=== PATIENT | female | born 1965 | race Hispanic/Latino ===

== ENCOUNTER 2018-02-03 10:52 | Emergency (ER) | payer BC, OTHER ==
[2018-02-03 11:24] VITALS: O2SAT 99
[2018-02-03] MEDS ORDERED: TDAP Vaccine 0.5 mL Syr IM ONE (11:25)
--- NOTE | 2018-02-03 11:43 | ED PDOC ---
Arrival/HPI - General Chief Complaint: Burn Time Seen by Provider: 02/03/18 11:20 Historian: Patient - History of Present Illness Narrative History of Present Illness (Text): 02/03/18 11:26 A 52 year old female with no significant past medical history presents to the emergency department status post burn from yesterday afternoon. 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 Patient notes the grease did not hit her eyes, she immediately washed her area with cold water and applied burn cream to areas affected with little relief. Patient reports her tetanus shot is not up to date. Patient denies any fever, chills, chest pain, shortness of breath, nausea, vomiting, diarrhea, urinary symptoms, back pain, neck pain, headache, dizziness, or any other complaints. Time/Duration: 24 hours (yesterday) Symptom Onset: Sudden Activities at Onset: Light Context: Work (Hospital Kitchen ) Past Medical History - Provider Review Nursing Documentation Reviewed: Yes - Reproductive Menopause: Yes - Cardiac Hx Cardiac Disorders: Yes Hx Hypertension: Yes - Pulmonary Hx Respiratory Disorders: No - Neurological Hx Neurological Disorder: No - HEENT Hx HEENT Disorder: No - Renal Hx Renal Disorder: No - Endocrine/Metabolic Hx Endocrine Disorders: Yes Other/Comment: THYROID DISEASE - Hematological/Oncological Hx Blood Disorders: No - Integumentary Hx Dermatological Disorder: No - Musculoskeletal/Rheumatological Hx Musculoskeletal Disorders: No - Gastrointestinal Hx Gastrointestinal Disorders: No - Genitourinary/Gynecological Hx Genitourinary Disorders: No - Psychiatric Hx Psychophysiologic Disorder: No Hx Substance Use: No - Surgical History Hx Section: Yes Family/Social History - Physician Review Nursing Documentation Reviewed: Yes Family/Social History: Unknown Family HX Smoking Status: Light Smoker < 10 Cigarettes Daily Hx Alcohol Use: Yes Frequency of alcohol use: Socially Hx Substance Use: No Allergies/Home Meds Allergies/Adverse Reactions: Allergies No Known Allergies Allergy (Verified 02/03/18 11:19) Home Medications: Home Meds Medication Instructions Recorded Confirmed Unobtainable 02/03/18 02/03/18 Review of Systems - Physician Review All systems were reviewed & negative as marked: Yes - Review of Systems Constitutional: Normal. absent: Fevers, Night Sweats Eyes: Normal ENT: Normal Respiratory: absent: SOB Cardiovascular: absent: Chest Pain Gastrointestinal: absent: Diarrhea, Nausea, Vomiting Genitourinary Female: absent: Urine Output Changes Musculoskeletal: absent: Back Pain, Neck Pain Skin: Other (burn on the bridge of her nose and around her lips ). absent: Normal, Rash, Pruritis, Skin Lesions, Laceration, Abscess, Ulcer, Cellulitis Neurological: absent: Headache, Dizziness Physical Exam Vital Signs Reviewed: Yes Vital Signs Temp Pulse Resp BP Pulse Ox 02/03/18 11:26 98.2 F 62 18 134/67 99 02/03/18 11:19 98.1 F 58 L 16 134/91 H 99 Temperature: Afebrile Blood Pressure: Hypertensive Pulse: Bradycardic Respiratory Rate: Normal Appearance: Positive for: Well-Appearing, Non-Toxic, Comfortable Pain Distress: None Mental Status: Positive for: Alert and Oriented X 3 - Systems Exam Head: Present: Atraumatic, Normocephalic Pupils: Present: PERRL Extroacular Muscles: Present: EOMI Conjunctiva: Present: Normal Mouth: Present: Moist Mucous Membranes Neck: Present: Normal Range of Motion Respiratory/Chest: Present: Clear to Auscultation, Good Air Exchange. No: Respiratory Distress, Accessory Muscle Use Cardiovascular: Present: Regular Rate and Rhythm, Normal S1, S2. No: Murmurs Abdomen: No: Tenderness, Distention, Peritoneal Signs Back: Present: Normal Inspection Upper Extremity: Present: Normal Inspection. No: Cyanosis, Edema Lower Extremity: Present: Normal Inspection. No: Edema Neurological: Present: GCS=15, CN II-XII Intact, Speech Normal Skin: Present: Warm, Dry, Normal Color, Other (superficial second degree burn on the bridge of her nose (1/2 cm diameter), burn and fluid filled blisters on on area above lip and two areas below lip-1/2 cm diameter (all drained by me)). No: Rashes, Diaphoretic, Erythematous, Induration, Hot, Cold, Pale, Laceration , Abscess, Abrasion Psychiatric: Present: Alert, Oriented x 3, Normal Insight, Normal Concentration Medical Decision Making ED Course and Treatment: 02/03/18 11:35 Impression: A 52 year old female with no significant past medical history presents to the emergency department status post burn. Plan: -- Reassess and disposition Prior Visits: Notes and results from previous visits were reviewed. Progress Notes: - Medication Orders Current Medication Orders: Discontinued Medications Tetanus/Reduced Diphtheria/Acell Pertussis (Boostrix Vaccine Inj) 0.5 ml IM .ONCE ONE Stop: 02/03/18 11:26 Last Admin: 02/03/18 11:35 Dose: 0.5 ml Immunization Registry Document 02/03/18 11:35 HI (Rec: 02/03/18 11:35 HI [id number]) Immunization Registry Consent Date 07/16/17 - Scribe Statement The provider has reviewed the documentation as recorded by the Vinceibkiana Garrett All medical record entries made by the Scribe were at my direction and personally dictated by me. I have reviewed the chart and agree that the record accurately reflects my personal performance of the history, physical exam, medical decision making, and the department course for this patient. I have also personally directed, reviewed, and agree with the discharge instructions and disposition. Disposition/Present on Arrival - Present on Arrival Any Indicators Present on Arrival: No History of DVT/PE: No History of Uncontrolled Diabetes: No Urinary Catheter: No History of Decub. Ulcer: No History Surgical Site Infection Following: None - Disposition Have Diagnosis and Disposition been Completed?: Yes Diagnosis: Second degree burn Disposition: HOME/ ROUTINE Disposition Time: 11:15 Condition: GOOD Discharge Instructions (ExitCare): Skin Low (DC) Additional Instructions: LORI LOPEZ, thank you for letting us take care of you today. Your provider was Marcos Lynn DO and you were treated for BURN. The emergency medical care you received today was directed at your acute symptoms. If you were prescribed any medication, please fill it and take as directed. It may take several days for your symptoms to resolve. Return to the Emergency Department if your symptoms worsen, do not improve, or if you have any other problems. Please contact your doctor or call one of the physicians/clinics you have been referred to that are listed on the Patient Visit Information form that is included in your discharge packet. Bring any paperwork you were given at discharge with you along with any medications you are taking to your follow up visit. Our treatment cannot replace ongoing medical care by a primary care provider outside of the emergency department. Thank you for allowing the Critical access hospital team to be part of your care today. Keep area clean and dry until healed. Use bacitracin twice a day until healed. Referrals: [facility] Alvin Abdullahi, [Family Provider] - Follow up with primary Forms: [employer] (French)
[2018-02-03 13:06] VITALS: BP 134/67; PULSE 62; RESP 18; TEMP 98.2
== END 2018-02-03 11:26 | disposition home or self-care (01) ==
LOC: ED 10:52
DX: T20.24XA Burn of second degree of nose (septum), initial encounter (principal); T20.22XA Burn of second degree of lip(s), initial encounter; X10.2XXA Contact with fats and cooking oils, initial encounter; Y92.238 Other place in hospital as the place of occurrence of the external cause; Y99.0 Civilian activity done for income or pay; Z23 Encounter for immunization

== ENCOUNTER 2018-04-04 11:03 | Emergency (ER) | payer BC, OTHER ==
[2018-04-04 11:06] VITALS: BMI 29.5
[2018-04-04 11:11] VITALS: TEMP 97.6
--- NOTE | 2018-04-04 11:41 | ED PDOC ---
Arrival/HPI - General Historian: Patient - History of Present Illness Narrative History of Present Illness (Text): 04/04/18 11:33 Patient is a 52 year old with a past medical history of hypertension, thyroid disease and anxiety presenting to the emergency room with a complaint of right sided facial/hand tingling for 24 hours. Yesterday while at work, the patient began to have a "funny sensation" on the right side of her face and right hand with a feeling of heaviness as well. Patient had Boothe's palsy approximately 20 years ago and states the sensation is similar. She has not been taking her anxiety and thyroid medications for the past couple of weeks because she ran out of her medication and when she re-filled it, they gave her a different medication. She reports increased stress at work, working long hours, increased fatigue and difficulty with her boss. Denies fevers, chills, nausea, vomiting, diarrhea, constipation, chest pain, shortness of breath, abdominal pain, vision changes, headaches, slurred speech or facial droop. Time/Duration: 24 hours Symptom Onset: Sudden Symptom Course: Improving Quality: Other (tingling) <Travon Garay - Last Filed: 04/04/18 13:10> <Leonardo Pop - Last Filed: 04/04/18 16:26> - General Chief Complaint: Weakness/Neurological Deficit Time Seen by Provider: 04/04/18 11:15 Past Medical History - Provider Review Nursing Documentation Reviewed: Yes - Infectious Disease Hx of Infectious Diseases: None - Reproductive Menopause: Yes - Cardiac Hx Cardiac Disorders: Yes Hx Hypertension: Yes - Pulmonary Hx Respiratory Disorders: No - Neurological Hx Neurological Disorder: No - HEENT Hx HEENT Disorder: No - Renal Hx Renal Disorder: No - Endocrine/Metabolic Hx Endocrine Disorders: Yes Other/Comment: THYROID DISEASE - Hematological/Oncological Hx Blood Disorders: No - Integumentary Hx Dermatological Disorder: No - Musculoskeletal/Rheumatological Hx Musculoskeletal Disorders: No - Gastrointestinal Hx Gastrointestinal Disorders: No - Genitourinary/Gynecological Hx Genitourinary Disorders: No - Psychiatric Hx Psychophysiologic Disorder: No Hx Substance Use: No - Surgical History Hx Section: Yes <Travon Garay - Last Filed: 04/04/18 13:10> Family/Social History - Physician Review Nursing Documentation Reviewed: Yes Family/Social History: Unknown Family HX Smoking Status: Light Smoker < 10 Cigarettes Daily Hx Alcohol Use: Yes Hx Substance Use: No <Travon Garay - Last Filed: 04/04/18 13:10> Allergies/Home Meds <Travon Garay - Last Filed: 04/04/18 13:10> <Leonardo Pop - Last Filed: 04/04/18 16:26> Allergies/Adverse Reactions: Allergies No Known Allergies Allergy (Verified 02/03/18 11:19) Home Medications: Home Meds Medication Instructions Recorded Confirmed RX: Unobtainable 02/03/18 02/03/18 Review of Systems - Physician Review All systems were reviewed & negative as marked: Yes - Review of Systems Constitutional: Fatigue (increased over the past few weeks working long hours at work.). absent: Fevers Eyes: Normal. absent: Vision Changes, Photophobia, Eye Pain ENT: Normal. absent: Sore Throat, Rhinorrhea Respiratory: Normal. absent: SOB, Wheezing Cardiovascular: Normal. absent: Chest Pain, Palpitations, Syncope Gastrointestinal: Normal. absent: Abdominal Pain, Constipation, Diarrhea, Nausea, Vomiting Musculoskeletal: Normal. absent: Back Pain Skin: Normal Neurological: Other (parenthesia of right face and right hand, heaviness of right face/hand). absent: Headache, Focal Weakness, Gait Changes, Speech Changes, Facial Droop Endocrine: Normal. absent: Diaphoresis Hemo/Lymphatic: Normal Psychiatric: Anxiety, Depression. absent: Suicidal Ideation <Travon Garay - Last Filed: 04/04/18 13:10> Physical Exam Vital Signs Reviewed: Yes Vital Signs Temp Pulse Resp BP Pulse Ox 04/04/18 11:06 97.6 F 74 20 199/106 H 99 Temperature: Afebrile Blood Pressure: Hypertensive Pulse: Regular Respiratory Rate: Normal Appearance: Positive for: Well-Appearing, Non-Toxic, Comfortable Pain Distress: None Mental Status: Positive for: Alert and Oriented X 3, other (anxious) - Systems Exam Head: Present: Atraumatic, Normocephalic Pupils: Present: PERRL. No: Sluggish, Pinpoint Extroacular Muscles: Present: EOMI Conjunctiva: Present: Normal Mouth: Present: Moist Mucous Membranes Nose (External): Present: Atraumatic Nose (Internal): Present: No Active Bleeding, Moist Neck: Present: Normal Range of Motion. No: Meningeal Signs, JVD, Lymphadenopathy Respiratory/Chest: Present: Clear to Auscultation, Good Air Exchange. No: Respiratory Distress, Accessory Muscle Use, Wheezes, Rales, Retracting, Rhonchi, Tachypneic Cardiovascular: Present: Regular Rate and Rhythm, Normal S1, S2, Peripheal Pulses Present. No: Murmurs Abdomen: No: Tenderness, Distention, Peritoneal Signs, Rebound, Guarding Back: Present: Normal Inspection. No: Midline Tenderness Upper Extremity: Present: Normal Inspection, NORMAL PULSES. No: Cyanosis, Edema Lower Extremity: Present: Normal Inspection, NORMAL PULSES. No: Edema, CALF TENDERNESS Neurological: Present: GCS=15, CN II-XII Intact, Speech Normal, Motor Func Grossly Intact, Normal Sensory Function, Memory Normal Skin: Present: Warm, Dry, Normal Color. No: Rashes Lymphatic: No: Cervical Adenopathy Psychiatric: Present: Alert, Oriented x 3, Normal Insight, Normal Concentration, Anxious (started crying when questioned about stress) <Travon Garay - Last Filed: 04/04/18 13:10> Vital Signs Temp Pulse Resp BP Pulse Ox 04/04/18 11:56 69 18 158/96 H 98 04/04/18 11:06 97.6 F 74 20 199/106 H 99 <Leonardo Pop - Last Filed: 04/04/18 16:26> Medical Decision Making ED Course and Treatment: 04/04/18 11:46 Patient is a 52 year old with a past medical history of hypertension, thyroid disease and anxiety presenting to the emergency room with a complaint of right sided facial/hand tingling for 24 hours. Patient has not been taking her hypertension, thyroid or anxiety medications for a couple of weeks. Patient appears anxious and upset, starting crying during examination. Neuro exam was unremarkable. Hypertensive - will recheck vitals Labs and Head CT w/o will re-assess 04/04/18 12:[address] - normal head CT Discussed results with patient. Patient states that she is feeling much better now. The sensation in her face has improved and she is able to focus much more clearly now. Repeat BP 114/92. 04/04/18 13:10 Patient is feeling much better with all of her symptoms now resolved. Patient counseled on taking all of her medications as directed and finding new ways to cope with stress. Patient will be discharged home and is to follow up with her primary care physician within 1 week. No new prescriptions given at this time. Patient states that she understands and will follow up with him next week. Re-evaluation Time: 12:25 Reassessment Condition: Improving,but remains with symptoms - Lab Interpretations I have reviewed the lab results: Yes - RAD Interpretation Narrative RAD Interpretations (Text): 04/04/18 12:[address] - normal head CT Radiology Orders: 04/04/18 11:32 HEAD W/O CONTRAST [CT] Stat Plate And Weld Inspector: Radiologist <Travon Garay - Last Filed: 04/04/18 13:10> ED Course and Treatment: 04/04/18 12:11 Seen and examined with the resident. Our history and physical exam reveals a woman complaining of just not feeling right. She complained of numbness on the right side of her face and heaviness on her right upper extremity which began yesterday. She is also extremely anxious that she has not taken her thyroid medication in 3 or 4 weeks. She did not take her blood pressure medication yesterday. Her neurological exam is within normal limits. She states that this feels similar to a previous episode of Boothe's palsy. - RAD Interpretation Radiology Orders: 04/04/18 11:32 HEAD W/O CONTRAST [CT] Stat <Leonardo Pop - Last Filed: 04/04/18 16:26> - PA / CRIMINAL LAWYER / Resident Statement MD/DO has examined the patient and agrees with the treatment plan. <Leonardo Pop - Last Filed: 04/04/18 16:26> Disposition/Present on Arrival - Present on Arrival Any Indicators Present on Arrival: No History of DVT/PE: No History of Uncontrolled Diabetes: No Urinary Catheter: No History of Decub. Ulcer: No History Surgical Site Infection Following: None - Disposition Have Diagnosis and Disposition been Completed?: Yes Disposition Time: 13:15 Patient Plan: Discharge <Travon Garay - Last Filed: 04/04/18 13:10> - Present on Arrival Any Indicators Present on Arrival: No History of DVT/PE: No History of Uncontrolled Diabetes: No Urinary Catheter: No History of Decub. Ulcer: No - Disposition Have Diagnosis and Disposition been Completed?: Yes Patient Plan: Discharge <Leonardo Pop - Last Filed: 04/04/18 16:26> - Disposition Diagnosis: Hypertension, Facial paresthesia, Anxiety Disposition: HOME/ ROUTINE Condition: GOOD Discharge Instructions (ExitCare): High Blood Pressure (DC), Anxiety, Adult (DC) Referrals: PCP,NO [Primary Care Provider] - Follow up with primary Forms: [employer] (Frisian)
[2018-04-04 11:57] VITALS: RESP 18
--- NOTE | 2018-04-04 12:18 | CT ---
Date of service: 04/04/2018 PROCEDURE: CT HEAD WITHOUT CONTRAST. HISTORY: facial weakness COMPARISON: None available TECHNIQUE: Axial computed tomography images were obtained through the head/brain without intravenous contrast. Radiation dose: Total exam DLP = 887.52 mGy-cm. This CT exam was performed using one or more of the following dose reduction techniques: Automated exposure control, adjustment of the mA and/or kV according to patient size, and/or use of iterative reconstruction technique. FINDINGS: Mild streak artifact limits evaluation of the skull base. HEMORRHAGE: No intracranial hemorrhage. BRAIN: No mass effect or edema. The michael-white matter differentiation appears intact. Please note that MRI with diffusion imaging is more sensitive in the detection of acute ischemic event. VENTRICLES: No hydrocephalus. CALVARIUM: Unremarkable. PARANASAL SINUSES: Unremarkable as visualized. No significant inflammatory changes. MASTOID AIR CELLS: Unremarkable as visualized. No inflammatory changes. OTHER FINDINGS: None. IMPRESSION: No acute intracranial pathology identified. Please note that MRI with diffusion imaging is more sensitive in the detection of acute ischemic event.
[2018-04-04 12:25] LABS: GRAN % 58.2 % (50.0-68.0); HEMOGLOBIN 13.5 g/dL (12.0-16.0); MEAN CELL VOLUME 97.8 fl (80.0-105.0); MEAN CORPUSCULAR HEMOGLOBIN 32.5 pg (25.0-35.0); MEAN CORPUSCULAR HGB CONC 33.2 g/dl (31.0-37.0); RBC 4.16 10^6/uL (3.5-6.1); RED CELL DISTRIBUTION WIDTH 13.1 % (11.5-14.5); WHITE BLOOD COUNT 6.7 10^3/ul (4.5-11.0)
[2018-04-04 12:26] LABS: BASO # 0.03 K/mm3 (0.0-2.0); BASO % 0.4 % (0.0-3.0); EOS # 0.1 (0.0-0.7); EOS % 0.7 % (1.5-5.0); GRAN # 3.87 (1.4-6.5); LYMPH # 2.2 (1.2-3.4); LYMPH % 32.2 % (22.0-35.0); MONO # 0.6 (0.1-0.6); MONO % 8.5 % (1.0-6.0)
[2018-04-04 12:31] LABS: ALB/GLOB RATIO 1.3 (1.1-1.8); ALBUMIN 4.4 g/dL (3.0-4.8); ALT/SGPT 39 U/L (7-56); AST/SGOT 44 U/L (14-36); BLOOD UREA NITROGEN 15 mg/dL (7-21); CALCIUM 9.4 mg/dL (8.4-10.5); GFR NON-AFRICAN AMERICAN > 60
[2018-04-04 12:47] LABS: FREE T4 0.75 ng/dL (0.78-2.19)
[2018-04-04 13:12] VITALS: BP 141/86; PULSE 63; O2SAT 98
== END 2018-04-04 13:21 | disposition home or self-care (01) ==
LOC: ED 11:03
DX: I10 Essential (primary) hypertension (principal); F41.9 Anxiety disorder, unspecified; R20.2 Paresthesia of skin; F17.210 Nicotine dependence, cigarettes, uncomplicated